=== PATIENT | male | born 1955 | race Caucasian/White ===

== ENCOUNTER 2019-08-14 09:07 | Outpatient (CLI) | payer OTHER, SELFPAY ==
--- NOTE | 2019-08-14 09:30 | USCV_ITS ---
Trung De Jesus Age: 64 Gender: M : 1955 Exam Date: 08/14/2019 09:27 Ordering Phys: Mayuri Magana MD Technologist: Belem Tesfaye Exam Location: [facility] – [place] Indication: visual disturbance Risk Factors: None Previous Vascular Surgery: None Right Brachial BP: / Left Brachial BP: / Right Left Velocity (cm/s) Spectral Plaque Velocity (cm/s) Spectral Plaque Syst/Diast Broadening Syst/Diast Broadening 92.60/ 20.90 Prox CCA 108.80/ 28.00 92.60/ 22.10 Mid CCA 68.40 / 19.80 87.10/ 22.10 Distal CCA 60.60 / 18.70 63.90/ 18.70 Prox ICA 110.40/ 22.30 Homo 91.50/ 27.60 Mid ICA 86.80 / 23.70 Homo 101.40/30.90 Distal ICA 57.30 / 23.10 111.40 ECA 98.10 1.10 ICA/CCA 1.02 Antegrade Vertebral Antegrade 48.20/ 14.00 cm/s 37.60/ 11.10 cm/s Tri Subclavian Tri 167.8 125.1 0 0 FINDINGS Comparison: none available. No significant elevation of systolic or diastolic velocities. Waveforms are normal. Minimal left bifurcation, intimal thickening with no elevation of velocity. CONCLUSIONS Bilateral ICA stenosis less than 50%. Minimal left bifurcation atherosclerosis. Dr. Caroline Nunez DO (Electronically Signed) Final Date: 14 Aug 2019 12:21 S
== END 2019-08-14 09:08 | disposition home or self-care (01) ==
LOC: RAD 09:11
PROVIDERS: PCP Family Medicine; Visit Provider Family Medicine
DX: H54.7 Unspecified visual loss (principal); I65.23 Occlusion and stenosis of bilateral carotid arteries
CPT/HCPCS: 93880

== ENCOUNTER 2020-04-02 13:34 | Outpatient (CLI) | payer OTHER, SELFPAY ==
--- NOTE | 2020-04-02 13:30 | USCV_ITS ---
Trung De Jesus Age: 65 Gender: M : 1955 Exam Date: 04/02/2020 13:56 Ordering Phys: Reuben Avery MD ([email or web address]) Technologist: Millie Yeager Exam Location: [facility] – [place] Indication: CHEST PAIN BP: 147 / 80 HR: 75 Rhythm: Sinus Technical Quality: Adequate MEASUREMENTS (Male / Female) Normal Values 2D ECHO LV Diastolic Diameter PLAX 5.1 cm 4.2 - 5.9 / 3.9 - 5.3 cm LV Systolic Diameter PLAX 3.6 cm LV Chamber Size 4.9 cm IVS Diastolic Thickness 1.4 cm 0.6 - 1.0 / 0.6 - 0.9 cm IVS Systolic Thickness 1.7 cm LVPW Diastolic Thickness 1.4 cm 0.6 - 1.0 / 0.6 - 0.9 cm LVPW Systolic Thickness 1.7 cm RV Chamber Size 3.2 cm LVOT Diameter 2.3 cm LV Ejection Fraction 2D Teich 56.7 % LV Ejection Fraction MOD 2C 50.7 % LV Ejection Fraction 2C AL 48.7 % LA Diameter 3.2 cm LA Width 3.4 cm LA Height 3.1 cm RA Width 3.4 cm RA Height 3.9 cm Aorta at Sinotubular Diameter 3.8 cm M-MODE LV Diastolic Diameter MM 6.4 cm 4.2 - 5.9 / 3.9 - 5.3 cm LV Systolic Diameter MM 3.5 cm LV Ejection Fraction MM Teich 76.4 % IVS Diastolic Thickness MM 0.9 cm 0.6 - 1.0 / 0.6 - 0.9 cm IVS Systolic Thickness MM 2.0 cm LVPW Diastolic Thickness MM 1.4 cm 0.6 - 1.0 / 0.6 - 0.9 cm LVPW Systolic Thickness MM 1.7 cm RV Diastolic Diameter MM 2.4 cm Aortic Annulus Diameter 4.0 cm LA Ao Ratio MM 0.9 MV E Point Septal Separation 0.7 cm DOPPLER AV Peak Velocity 157.0 cm/s LVOT Peak Velocity 86.0 cm/s AV Area Cont Eq vti 2.3 cm squared AV Area Cont Eq pk 2.4 cm squared MV Area PHT 5.0 cm squared Mitral E to A Ratio 0.9 MV E' Velocity 31.0 cm/s Mitral E to MV E' Ratio 9.1 Mitral E to LV E' Lateral Ratio 9.1 Mitral E to LV E' Septal Ratio 9.1 TR Peak Velocity 99.6 cm/s TR Peak Gradient 4.0 mmHg TR Mean Velocity 78.5 cm/s TR Mean Gradient 2.6 mmHg TR Velocity Time Integral 25.2 cm TV Peak E Velocity 59.0 cm/s PV Peak Velocity 84.0 cm/s RV Acceleration Time 0.2 s RV Ejection Time 0.3 s RV AcT/ET 0.5 FINDINGS Left Ventricle Mildly dilated left ventricle with slightly diminished ejection fraction 50 to 55%. Mild hypokinesia of the LV apex. Mild concentric left ventricular hypertrophy. Right Ventricle Normal right ventricular size and systolic function. Right Atrium Normal right atrial size. Left Atrium Normal left atrial size. Mitral Valve Thickened mitral valve. Mild mitral valve regurgitation. Aortic Valve Thickened aortic valve. [id number] aortic valve regurgitation. Tricuspid Valve Trace tricuspid valve regurgitation. Pulmonic Valve Trace pulmonary valve regurgitation. Pericardium Normal pericardium without effusion. Aorta The ascending aorta measured 3.6 cm in diameter CONCLUSIONS Mildly dilated left ventricle with slightly diminished ejection fraction 50 to 55%. Mild hypokinesia of the LV apex. Mild concentric left ventricular hypertrophy. Thickened mitral valve. Mild mitral valve regurgitation. Thickened aortic valve. Yrrf-eq-vvmdmraa aortic valve regurgitation. Trace tricuspid and pulmonic valve regurgitation. There is no pericardial effusion. There are no intracardiac masses. Mildly dilated ascending aorta Compared to the previous study from 02/05/2018, the wall motion abnormality appears to be new Dr Reuben Avery MD [facility] (Electronically Signed) Final Date: 02 April 2020 20:05 S
== END 2020-04-02 13:35 | disposition home or self-care (01) ==
LOC: US 13:36
PROVIDERS: PCP Family Medicine; Visit Provider Internal Medicine Cardiovascular Disease
DX: R07.89 Other chest pain (principal); I08.3 Combined rheumatic disorders of mitral, aortic and tricuspid valves
CPT/HCPCS: 93306

== ENCOUNTER 2020-04-07 09:04 | Outpatient (CLI) | payer OTHER, SELFPAY ==
[2020-04-07 09:33] VITALS: BMI 29.2
--- NOTE | 2020-04-07 09:33 | NMCV_ITS ---
NM tierra perf SPECT r/s* [id number] Trung De Jesus Age: 65 Gender: M : 1955 Exam Date: 04/07/2020 09:33 Ordering Phys: Reuben Avery MD ([email or web address]) Technologist: KATY Argueta Exam Location: [facility] Indications: SOB STRESS TEST [facility] IMAGE PROTOCOL Rest/Stress 1 Lexiscan Day Radiopharmaceutical Dose (mCi) Administration Site Administered by Rest: Tc-99m 10.8 IV KATY Delatorre Sestamibi Stress:Tc-99m 33.0 IV KATY Delatorre Sestamibi Rest: 07-Apr-2020 60 Discovery 630 Stress: 07-Apr-2020 30 Discovery 630 0.4mg Lexiscan. Images obtained in supine and prone position. SPECT RESULTS Technical Quality: Excellent Raw Data Analysis: Normal Image Corrections: No attenuation or motion correction applied Summed Stress Score: 4 Summed Rest Score: 10 Summed Difference Score: 0 PERFUSION FINDINGS Moderate area of decreased tracer uptake was noted in the apical segments. No significant reversibility was noted in this region. FUNCTIONAL RESULTS (calculated via Gated SPECT) Stress Image LV EF (%): 41 Stress EDV (mL):205 TID: 1.08 Stress ESV (mL):121 FUNCTIONAL FINDINGS: Segmental wall motion analysis revealed mild diffuse hypokinesia of the left ventricle with severe hypokinesia of the apex IMPRESSIONS 1. Myocardial perfusion imaging revealing patchy areas of persistent decreased tracer uptake in the apical segments, suggestive of myocardial scarring versus attenuation artifact. 2. Wall motion normalities as mentioned above. 3. Moderately dilated LV cavity with an end-systolic volume of 121 mL 4. LV ejection fraction, estimated to be 41% No significant coronary ischemia, based on the above findings Dr Reuben Avery MD [facility] (Electronically Signed) Final Date: 07 April 2020 13:05 S
--- NOTE | 2020-04-07 09:33 | ECG_ITS ---
[facility] Test Date: 2020-04-07 Pat Name: Trung De Jesus Department: Room: Gender: Male Carrier Operator: : 1955 Requested By: Reuben Avery Order Number: [id number] Adeel MD: Reuben Avery M.D. Interpretive Statements NAME OF STUDY: LEXISCAN SESTAMIBI STRESS TEST INDICATION: Sob, PROCEDURE: At the baseline, the EKG revealed normal sinus rhythm with no significant ST-T changes. Heart rate of 63 bpm. The baseline blood pressure was 139/77 mm Hg with a heart rate of 63 beats/min. Lexiscan was infused over a period of 20 seconds. A total of 0.4 milligrams of Lexiscan was infused. The stress phase was continued for a total of 5 minutes. Heart rate at the end of the stress phase was 75 with a blood pressure 118/80. The EKG at the peak infusion revealed no significant changes. Sestamibi was injected 20 seconds after the Lexiscan infusion. Blood pressure at the end of the recovery phase was 131/81 with a heart rate of 79 per minute. CONCLUSION: 1. No significant EKG changes with the LexiScan infusion 2. No LexiScan induced chest pain or cardiac arrhythmia 3. Normal blood pressure and heart rate response 4. Sestamibi/sestamibi perfusion scan pending; see separate report. Electronically Signed On 04-16-2020 11:39:08 JUNIOR UNDERWRITER by Reuben Avery M.D. [id number]
[2020-04-07] MEDS: regadenoson 0.4 Mg/5 ml Syringe IVP (10:53)
[2020-04-07 11:01] VITALS: BP 131/81; PULSE 75
== END 2020-04-07 09:05 | disposition home or self-care (01) ==
LOC: CDL 09:09
PROVIDERS: PCP Family Medicine; Visit Provider Internal Medicine Cardiovascular Disease
DX: R06.02 Shortness of breath (principal)
CPT/HCPCS: 78452; 93017; A9500; J2785

== ENCOUNTER 2021-04-07 14:37 | Outpatient (CLI) | payer OTHER, SELFPAY ==
--- NOTE | 2021-04-07 15:00 | USCV_ITS ---
Trung De Jesus Age: 66 Gender: M : 1955 Exam Date: 04/07/2021 15:00 Ordering Phys: Reuben Avery MD ([email or web address]) Technologist: SERGIO Exam [place] [facility] [place] Indication: BILATERAL CAROTID ARTERY DISEASE Risk Factors: Previous Vascular Surgery: Right Brachial BP: / Left Brachial BP: / Right Left Velocity (cm/s) Spectral Plaque Velocity (cm/s) Spectral Plaque Syst/Diast Broadening Syst/Diast Broadening 78.20/ 27.80 Prox CCA 103.60/ 27.70 79.40/ 19.80 Mid CCA 84.90 / 25.40 78.30/ 29.80 Distal CCA 77.70 / 21.80 69.10/ 29.50 Prox ICA 89.70 / 29.90 65.30/ 24.90 Mid ICA 99.10 / 27.30 86.20/ 31.10 Distal ICA 55.90 / 21.70 83.10 ECA 110.20 0.82 ICA/CCA 1.17 Antegrade Vertebral Antegrade 54.40/ 17.90 cm/s 83.50/ 23.70 cm/s Tri Subclavian Tri 90.10 107.7 0 FINDINGS Normal Doppler flow velocities and ratios No significant plaques or unstable lesions CONCLUSIONS No significant plaques or unstable lesions in the above- mentioned vessels No significant stenosis based on the Doppler flow velocities Dr Reuben Avery MD [facility] (Electronically Signed) Final Date: 07 April 2021 19:32 S
== END 2021-04-07 14:38 | disposition home or self-care (01) ==
LOC: RAD 14:46
PROVIDERS: PCP Family Medicine; Visit Provider Internal Medicine Cardiovascular Disease
DX: G45.3 Amaurosis fugax (principal); I77.9 Disorder of arteries and arterioles, unspecified
CPT/HCPCS: 93880

== ENCOUNTER 2021-04-18 18:46 | Emergency (ER) | payer OTHER, SELFPAY ==
--- NOTE | 2021-04-18 18:50 | XRR_ITS ---
PROCEDURE INFORMATION: Exam: XR Chest Exam date and time: 04/18/2021 6:50 PM Age: 66 years old Clinical indication: Chest wall pain; Additional info: Cp TECHNIQUE: Imaging protocol: XR of the chest. Views: 1 view. COMPARISON: No relevant prior studies available. FINDINGS: Lungs: Unremarkable. No consolidation. Pleural spaces: Unremarkable. No pleural effusion. No pneumothorax. Heart/Mediastinum: Unremarkable. No cardiomegaly. Bones/joints: Unremarkable. XR/XR chest 1V portable [id number] IMPRESSION: No acute findings.
[2021-04-18 19:11] VITALS: BP 137/89; PULSE 86; RESP 18; TEMP 36.7; O2SAT 98; BMI 28.4
--- NOTE | 2021-04-18 20:50 | ECG_ITS ---
[facility] Test Date: 2021-04-18 Pat Name: Trung De Jesus Department: Room: Gender: Male Emd Teacher: : 1955 Requested By: Anders Plascencia Order Number: [id number] Reading MD: Tawana Henry M.D. Measurements Intervals [place] Rate: 80 P: 73 MN: 172 QRS: 60 QRSD: 116 T: 74 QT: 346 QTc: 399 Interpretive Statements SINUS RHYTHM MODERATE INTRAVENTRICULAR CONDUCTION DELAY [110+ ms QRS DURATION] NONSPECIFIC T-WAVE ABNORMALITY No previous ECG available for comparison Electronically Signed On 04-19-2021 17:13:39 CANDLEMAKING LABORER by Tawana Henry M.D. [email or web address]cura Pharmaceuticalssan mateo medical [email or web address]/[id number]
[2021-04-18 22:47] LABS: Basophils # 0.1 10^3/uL (0.0-0.1); Basophils % 0.9 %; Eosinophils # 0.1 10^3/uL (0.0-0.8); Eosinophils % 1.1 %; Hematocrit 42.6 % (42.0-52.0); Hemoglobin 14.1 g/dL (11.7-16.6); Lymphocytes # 1.7 10^3/uL (0.8-4.8); Lymphocytes % 25.9 %; Mean Corpuscular HGB Conc 33.1 g/dL (30.0-36.0); Mean Corpuscular Hemoglobin 31.1 pg (28.0-34.0); Mean Corpuscular Volume 93.8 fl (80-94); Mean Platelet Volume 8.6 fL (7.4-10.4); Monocytes # 0.6 10^3/uL (0.2-0.9); Monocytes % 9.2 %; Neutrophils # 4.15 10^3/uL (1.8-7.7); Neutrophils % 62.4 %; Nucleated Red Blood Cells % 0 %; Platelet Count 244 10^3/cmm (130-400); Red Blood Count 4.54 10^6/uL (4.1-5.3); Red Cell Distribution Width 12.5 % (12.1-15.1); White Blood Count 6.6 10^3/uL (4.0-10.0)
[2021-04-18 22:57] VITALS: BP 151/77; PULSE 77; RESP 18; O2SAT 98
--- NOTE | 2021-04-18 22:59 | PC.NURSE ---
received with c/o elevated blood pressure and increased heart rate starting last night states he could hear his heart when he was lying in bed. states today chest discomfort on the left. states recent COVID. reprots compliance with medications. speech clear sentences complete.
[2021-04-18] MEDS: labetalol 5 mg/mL SDV 20mL 10 MG IVP (23:03)
[2021-04-18] MEDS: aspirin 81 mg Chew Tablet 324 MG PO (23:03)
--- NOTE | 2021-04-18 23:05 | W.ED.CHESTPA ---
HPI - Chest Pain General: Chief Complaint: Chest Pain Stated Complaint: High Blood Pressure\Chest Pain Time Seen by Provider: 04/18/21 22:53 Source: patient Mode of arrival: ambulatory Limitations: no limitations History of Present Illness: 66-year-old male states he has been having some difficulty with his blood pressure has been having his carvedilol adjusted he states he was on 1 tab twice daily but now takes for 1 in the morning and half at night. He states that this evening his blood pressures get high in the 160s 170s he is having some fluttering feeling and some pressure type pain in his chest. States this happened about 5 to 6 hours ago since resolved he has no pain currently denies headache denies any shortness of breath denies any worsening improving factors. Associated symptoms: Deny abdominal pain, dyspnea, fever(s), nausea or vomiting Review of Systems Const: Denies: fever(s), chills, body aches or change in appetite Eyes: Denies: blurry vision or eye discomfort ENMT: Denies: throat pain or dental pain Card: Reports: chest pain Resp: Denies: dyspnea GI: Denies: abdominal pain, nausea, vomiting or diarrhea : Denies: dysuria Musc: Denies: neck pain or back pain Skin/Breast: Denies: rash Neuro: Denies: headache(s) Psych: Denies: depression Lionel/Lymph: Denies: easy bruising All/Imm: Denies: urticaria PFSH ED PFSH: Medical History Aortic regurgitation Chest pain The EKG from today March 08, 2020 revealed sinus rhythm with 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 No acute ST-T changes. Former smoker History of BPH History of hypertension Hx of hypercholesterolemia Surgical History History of total left knee replacement Hx of colonoscopy Family History Brother Diabetes CAD (coronary artery disease) Hypertension Father Cancer Hypertension Mother Dementia Denies family history of Clotting disorder Chronic kidney disease (CKD) Suicide Anesthesia complication Bleeding disorder Lung disease Stroke Social History Alcohol intake: never Physical Exam Const: COMMON NORMALS: no acute distress, patient oriented x3 and healthy appearing HENMT: COMMON NORMALS: normocephalic and atraumatic HEAD & SCALP: normocephalic and atraumatic Eye: COMMON NORMALS: Equal, round and reactive pupils present and EOMs intact bilaterally PUPIL: Yes Equal, round and reactive pupils present Neck/C-Spine: COMMON NORMALS: full ROM and supple Chest: COMMONS NORMALS: normal inspection of the chest and normal palpation of entire chest wall Resp: COMMON NORMALS: normal respiratory effort, No retractions, No use of accessory muscles and clear to auscultation bilaterally AUSCULTATION: clear to auscultation bilaterally Cardio: COMMON NORMALS: regular rate, regular rhythm and No murmurs present (Cardio) RATE: regular rate RHYTHM: regular rhythm GI: COMMON NORMALS: Normal to inspection, nondistended, normoactive bowel sounds present, Soft to palpation, non-tender and no masses PALPATION: Yes Soft to palpation Extremity: COMMON NORMALS: normal to inspection and full ROM Neuro: COMMON NORMALS: patient oriented x3, moves all extremities and no focal motor deficits Psych: COMMON NORMALS: mental status grossly normal, Normal thought process present and cooperative THOUGHT PROCESS: Normal thought process present Skin: COMMON NORMALS: no rashes or lesions noted and no wounds GENERAL SKIN EXAM: no rashes or lesions noted Course Vital Signs: Vital signs: Vital Signs Temperature 98.0 F 04/18/21 19:11 Pulse Rate 60 04/19/21 00:09 Respiratory Rate 18 04/19/21 00:09 Blood Pressure 127/77 04/19/21 00:09 Pulse Oximetry 97 04/19/21 00:09 MDM - Chest Pain Medical Decision Making Patient presents here with chest pains very atypical in nature likely from his high blood pressures initial repeat troponins are negative EKGs are normal as well blood pressure improved here with labetalol we will increase his dose of carvedilol back to 1 pill twice daily he feels improved he is to follow-up with his production service manager return if worsening he understands agrees to plan Medical Records . Lab Data : 04/18/21 22:40 04/18/21 22:40 Radiology Impressions Chest X-Ray 04/18/21 18:50 IMPRESSION: No acute findings. Laboratory Results WBC 6.6 10^3/uL (4.0-10.0) 04/18/21 22:40 RBC 4.54 10^6/uL (4.1-5.3) 04/18/21 22:40 Hgb 14.1 g/dL (11.7-16.6) 04/18/21 22:40 Hct 42.6 % (42.0-52.0) 04/18/21 22:40 MCV 93.8 fl (80-94) 04/18/21 22:40 MCH 31.1 pg (28.0-34.0) 04/18/21 22:40 MCHC 33.1 g/dL (30.0-36.0) 04/18/21:40 RDW 12.5 % (12.1-15.1) 04/18/21:40 Plt Count 244 10^3/cmm (130-400) 04/18/21:40 MPV 8.6 fL (7.4-10.4) 04/18/21 22:40 Neut % (Auto) 62.4 % 04/18/21:40 Lymph % (Auto) 25.9 % 04/18/21:40 [place]ier % (Auto) 9.2 % 04/18/21 22:40 Eos % (Auto) 1.1 % 04/18/21:40 Baso % (Auto) 0.9 % 04/18/21:40 Neut # (Auto) 4.15 10^3/uL (1.8-7.7) 04/18/21:40 Lymph # (Auto) 1.7 10^3/uL (0.8-4.8) 04/18/21 22:40 [place] # (Auto) 0.6 10^3/uL (0.2-0.9) 04/18/21:40 Eos # (Auto) 0.1 10^3/uL (0.0-0.8) 04/18/21:40 Baso # (Auto) 0.1 10^3/uL (0.0-0.1) 04/18/21:40 Nucleated RBC % (auto) 0 % 04/18/21:40 Nucleated RBCs # 0.0 /100WBC 04/18/21:40 Sodium 139 mmol/L (136-145) 04/18/21 22:40 Potassium 4.1 mmol/L (3.5-5.1) 04/18/21 22:40 Chloride 103 mmol/L (98-107) 04/18/21 22:40 Carbon Dioxide 27 mmol/L (22-29) 04/18/21 22:40 Anion Gap 13.1 (5-19) 04/18/21 22:40 BUN 11 mg/dL (8-23) 04/18/21 22:40 Creatinine 0.9 mg/dL (0.7-1.2) 04/18/21 22:40 GFR Calculation 85.0 mL/min (90-130) L 04/18/21 22:40 Glucose 88 mg/dL (65-115) 04/18/21 22:40 Calculated Osmolality 287 mOsm/kg (285-295) 04/18/21 22:40 Calcium 8.9 mg/dL (8.5-10.5) 04/18/21 22:40 Total Bilirubin 0.5 mg/dL (0.15-1.2) 04/18/21 22:40 AST 27 U/L (0-40) 04/18/21 22:40 ALT 12 U/L (0-41) 04/18/21 22:40 Alkaline Phosphatase 86 IU/L (40-130) 04/18/21 22:40 Troponin T Baseline 11 ng/L (0-15) 04/18/21 22:40 Troponin T 120 Minute 10.90 ng/L (0-15) 04/18/21 00:40 Delta Troponin T -0.10 ABS# (0-10) L 04/18/21 00:40 Total Protein 6.9 g/dL (6.6-8.7) 04/18/21 22:40 Albumin 4.3 g/dL (3.5-5.2) 04/18/21 22:40 Globulin 2.6 g/dL (1.3-4.6) 04/18/21 22:40 Imaging Data CXR: I personally reviewed and interpreted this imaging study as follows: My impression: no acute abnormality EKG Data EKG 1: I personally reviewed and interpreted this EKG as follows: EKG interpretation date: 04/18/21 EKG interpretation time: 19:09 Interpretation: nsr hr [address] or t wave abnormalities qrs 116 qtc 381 EKG 2: I personally reviewed and interpreted this EKG as follows: EKG interpretation date: 04/19/21 EKG interpretation time: 00:32 Interpretation: nsr hr [address] or t wave abnormalities qrs 115 qtc 398 Discharge Plan Discharge Patient Disposition: Home Clinical Impression: Hypertension Chest pain Qualifiers: Chest pain type: unspecified Qualified Code(s): R07.9 - Chest pain, unspecified Condition: Stable Prescriptions: Changed carvedilol 6.25 mg tablet 6.25 mg PO BID Qty: 45 0RF Rx Instructions: must administer with a meal/food No Action aspirin [Adult Aspirin Regimen] 81 mg tablet,delayed release (DR/EC) 81 mg PO DAILY 0RF atorvastatin 40 mg tablet 40 mg PO DAILY 0RF ibuprofen 200 mg capsule 200 mg PO Q6H PRN0RF omeprazole 20 mg capsule,delayed release(DR/EC) 20 mg PO DAILY 0RF tamsulosin 0.4 mg capsule 0.4 mg PO DAILY 0RF triamcinolone acetonide 0.1 % cream 1 applic topical DAILY 0RF lisinopril 10 mg tablet 10 mg PO DAILY Qty: 30 5RF Discharge Orders: Discharge ED (Routine); Ordered 04/19/21 Ordered By: Anders Plascencia Referrals: Mayuri Magana MD [Primary Care Provider] - Reuben Avery MD [Physician] - 1-3 days Discharge Diet: Advance as tolerated Discharge Activity: Resume usual activity Coding Level of Care Code ED Optometrist President/Practice Owner for Chg Fwd Exam Comprehensive
[2021-04-18 23:14] LABS: Troponin(5th) Baseline 11 ng/L (0-15)
[2021-04-18 23:15] LABS: Alanine Aminotransferase 12 U/L (0-41); Albumin Level 4.3 g/dL (3.5-5.2); Alkaline Phosphatase 86 IU/L (40-130); Anion Gap 13.1 (5-19); Aspartate Amino Transferase 27 U/L (0-40); Blood Urea Nitrogen 11 mg/dL (8-23); Calcium 8.9 mg/dL (8.5-10.5); Carbon Dioxide 27 mmol/L (22-29); Chloride 103 mmol/L (98-107); Globulin 2.6 g/dL (1.3-4.6); Glucose 88 mg/dL (65-115); Osmolality Calculated 287 mOsm/kg (285-295); Potassium 4.1 mmol/L (3.5-5.1); Sodium 139 mmol/L (136-145); Total Bilirubin 0.5 mg/dL (0.15-1.2); Total Protein 6.9 g/dL (6.6-8.7)
[2021-04-19 00:09] VITALS: BP 127/77; PULSE 60; RESP 18; O2SAT 97
--- NOTE | 2021-04-19 00:50 | ECG_ITS ---
[facility] Test Date: 2021-04-19 Pat Name: Trung De Jesus Department: Room: Gender: Male Financial Services Education Consultant: : 1955 Requested By: Anders Plascencia Order Number: [id number] Adeel MD: Tawana Henry M.D. Measurements Intervals [place] Rate: 61 P: 86 NE: 184 QRS: 30 QRSD: 115 T: 77 QT: 396 QTc: 399 Interpretive Statements SINUS RHYTHM MODERATE INTRAVENTRICULAR CONDUCTION DELAY [110+ ms QRS DURATION] NONSPECIFIC T-WAVE ABNORMALITY Compared to ECG 04/18/2021 19:09:12 No significant changes Electronically Signed On 04-19-2021 17:13:13 LAWNMOWER MECHANIC by Tawana Henry M.D. [id number]
[2021-04-19 02:01] VITALS: BP 135/78; PULSE 65; RESP 18; O2SAT 98
== END 2021-04-19 02:02 | disposition home or self-care (01) ==
PROVIDERS: Emergency Provider Emergency Medicine; PCP Family Medicine
DX: R07.9 Chest pain, unspecified (principal); I10 Essential (primary) hypertension; Z79.82 Long term (current) use of aspirin
CPT/HCPCS: 71045; 80053; 84484; 85025; 93005; 96374; 99284; J3490

== ENCOUNTER 2021-11-05 17:28 | Emergency (ER) | payer OTHER, SELFPAY ==
[2021-11-05 18:01] VITALS: BP 124/75; PULSE 63; RESP 16; TEMP 36.4; O2SAT 99; BMI 28.5
--- NOTE | 2021-11-05 19:07 | W.ED.ABDPA2 ---
HPI - Abdominal Pain General: Chief Complaint: Abdominal Pain Stated Complaint: n/v/d, Right side pain Time Seen by Provider: 11/05/21 18:42 History of Present Illness: Patient is a 66-year-old male comes to the ED with nausea vomiting diarrhea. Symptoms started this morning when he woke up. He states he has had similar episodes like about 1 day a week for the past 2 months. He reports having some very mild episodic abdominal cramping that is located in right upper abdomen. He says that pain comes and goes during these episodes. He has had multiple episodes of diarrhea today along with nausea and vomiting. He states that he ate some [place] food last night and then ate a big biscuits and gravy breakfast in the morning. Tonight his nausea, vomiting diarrhea got worse and has had multiple episodes within the past couple hours. Here in the ED he says he is not having any abdominal pain or nausea currently. He feels like he might have another diarrhea BM here in the ED. Denies any fevers, chills, blood in the stool, dysuria, hematuria. Denies any past abdominal surgery history. Associated Symptoms: Reports GI cramping, diarrhea, nausea and vomiting; Denies chills, constipation, dysuria, fever(s), hematochezia and hematuria Review of Systems Const: Denies: fever(s), chills or fatigue Eyes: Denies: change in vision or eye discomfort ENMT: Denies: throat pain, odynophagia, nasal discharge or nasal congestion Card: Denies: chest pain, palpitations, edema, swelling of feet/ankles, dyspnea on exertion or orthopnea Resp: Denies: dyspnea, productive cough or non-productive cough GI: Reports: nausea, vomiting, diarrhea and GI cramping; Denies: abdominal pain, constipation or hematochezia : Denies: flank pain, difficulty urinating, dysuria or hematuria Musc: Denies: neck pain, back pain or extremity swelling Skin/Breast: Denies: rash or new lesions Neuro: Denies: headache(s), numbness in extremities or weakness in extremities PFS ED PFSH: Medical History Aortic regurgitation Chest pain Former smoker History of BPH History of hypertension Hx of hypercholesterolemia Surgical History History of total left knee replacement Hx of colonoscopy Family History Brother Diabetes CAD (coronary artery disease) Hypertension Father Cancer Hypertension Mother Dementia Denies family history of Clotting disorder Chronic kidney disease (CKD) Suicide Anesthesia complication Bleeding disorder Lung disease Stroke Social History Smoking and tobacco status: former smoker Alcohol intake: never Physical Exam Const: COMMON NORMALS: no acute distress, patient oriented x3 and alert GENERAL APPEARANCE: cooperative HENMT: COMMON NORMALS: normocephalic HEAD & SCALP: normocephalic MOUTH: Normal oral and palatal mucosa present THROAT: posterior oropharynx normal and uvula midline Neck/C-Spine: COMMON NORMALS: supple GENERAL: Yes normal visual inspection Resp: COMMON NORMALS: normal respiratory effort, No retractions, No use of accessory muscles and clear to auscultation bilaterally AUSCULTATION: clear to auscultation bilaterally Cardio: COMMON NORMALS: regular rate, regular rhythm, S1 normal heart sound present, S2 normal heart sound present, No gallops present (Cardio), No clicks present (Cardio), No murmurs present (Cardio) and Peripheral pulses 2+ throughout RATE: regular rate RHYTHM: regular rhythm HEART SOUNDS: S1 normal heart sound present and S2 normal heart sound present PERIPHERAL PULSES: Peripheral pulses 2+ throughout GI: COMMON NORMALS: Normal to inspection, nondistended, normoactive bowel sounds present, Soft to palpation, non-tender and no masses PALPATION: Yes Soft to palpation OTHER: Patient has no abdominal tenderness upon palpation throughout all 4 quadrants. : COMMON NORMALS: Yes no CVA tenderness BLADDER/KIDNEY EXAM: Yes no CVA tenderness Back/Pelvis: COMMON NORMALS: no CVA tenderness Extremity: COMMON NORMALS: normal to inspection Neuro: COMMON NORMALS: patient oriented x3 SENSORIUM/ORIENTATION: Yes alert GAIT: Yes Normal gait present Skin: GENERAL SKIN EXAM: dry skin Course Vital Signs: Vital signs: Vital Signs Temperature 97.6 F 11/05/21 18:01 Pulse Rate 63 11/05/21 18:01 Respiratory Rate 16 11/05/21 18:01 Blood Pressure 124/75 11/05/21 18:01 Pulse Oximetry 99 11/05/21 18:01 Oxygen Delivery Me thod 11/05/21 18:01 MDM - Abdominal Pain Medical Decision Making Patient is a 66-year-old male comes to the ED with nausea vomiting diarrhea. Symptoms started this morning when he woke up. He states he has had similar episodes like about 1 day a week for the past 2 months. He reports having some very mild episodic abdominal cramping that is located in right upper abdomen. He says that pain comes and goes during these episodes. He has had multiple episodes of diarrhea today along with nausea and vomiting. Vitals stable. Exam of patient is benign and he appears in no acute distress or pain. No abdominal tenderness. Rest of exam is benign white blood cell count 11.4 the rest of CBC and CMP were unremarkable. CT of abdomen pelvis showed no acute findings. Given patient's symptoms for the past couple months he likely is suffering from IBS. He was stable for discharge home and sent home with a prescription for some Bentyl and Zofran. Told to follow-up with his PCP in the next week for reevaluation. Return to ED precautions given. Patient understood and agreed with plan. Lab Data I reviewed the patient's lab results. : 11/05/21 19:15 11/05/21 19:15 Labs/Radiology: Radiology Impressions Abdomen/Pelvis CT 11/05/21 19:35 IMPRESSION: No focal acute findings. Bowel fluid can be correlated for viral or other osmotic or secretory type diarrhea. Additional details as above. COMMENTS: Consistent with the [employer]'s Incidental Findings Committee white paper (J Am Ryan Radiol 2018): Any incidental renal lesion less than 1 cm or classified as too small to characterize, or any incidental cystic renal lesion characterized as simple-appearing, is likely benign. No follow-up imaging is recommended for these lesions per consensus recommendations based on imaging criteria. Laboratory Results WBC 11.4 10^3/uL (4.0-10.0) H 11/05/21 19:15 RBC 4.32 10^6/uL (4.1-5.3) 11/05/21 19:15 Hgb 13.5 g/dL (11.7-16.6) 11/05/21 19:15 Hct 41.6 % (42.0-52.0) L 11/05/21 19:15 MCV 96.3 fl (80-94) H 11/05/21 19:15 MCH 31.3 pg (28.0-34.0) 11/05/21 19:15 MCHC 32.5 g/dL (30.0-36.0) 11/05/21 19:15 RDW 13.1 % (12.1-15.1) 11/05/21 19:15 Plt Count 207 10^3/cmm (130-400) 11/05/21 19:15 MPV 9.6 fL (7.4-10.4) 11/05/21 19:15 Neut % (Auto) 86.6 % 11/05/21 19:15 Lymph % (Auto) 6.2 % 11/05/21 19:15 [place] % (Auto) 5.7 % 11/05/21 19:15 Eos % (Auto) 0.8 % 11/05/21 19:15 Baso % (Auto) 0.4 % 11/05/21 19:15 Neut # (Auto) 9.86 10^3/uL (1.8-7.7) H 11/05/21 19:15 Lymph # (Auto) 0.7 10^3/uL (0.8-4.8) L 11/05/21 19:15 [place] # (Auto) 0.7 10^3/uL (0.2-0.9) 11/05/21 19:15 Eos # (Auto) 0.1 10^3/uL (0.0-0.8) 11/05/21 19:15 Baso # (Auto) 0.1 10^3/uL (0.0-0.1) 11/05/21 19:15 Nucleated RBC % (auto) 0 % 11/05/21 19:15 Nucleated RBCs # 0.0 /100WBC 11/05/21 19:15 Sodium 141 mmol/L (136-145) 11/05/21 19:15 Potassium 4.0 mmol/L (3.5-5.1) 11/05/21 19:15 Chloride 105 mmol/L (98-107) 11/05/21 19:15 Carbon Dioxide 23 mmol/L (22-29) 11/05/21 19:15 Anion Gap 17.0 (5-19) 11/05/21 19:15 BUN 16 mg/dL (8-23) 11/05/21 19:15 Creatinine 0.9 mg/dL (0.7-1.2) 11/05/21 19:15 GFR Calculation 85.0 mL/min (90-130) L 11/05/21 19:15 Glucose 92 mg/dL (65-115) 11/05/21 19:15 Calculated Osmolality 293 mOsm/kg (285-295) 11/05/21 19:15 Calcium 9.6 mg/dL (8.5-10.5) 11/05/21 19:15 Total Bilirubin 0.6 mg/dL (0.15-1.2) 11/05/21 19:15 AST 27 U/L (0-40) 11/05/21 19:15 ALT 11 U/L (0-41) 11/05/21 19:15 Alkaline Phosphatase 84 U/L (40-130) 11/05/21 19:15 Total Protein 7.2 g/dL (6.6-8.7) 11/05/21 19:15 Albumin 4.4 g/dL (3.5-5.2) 11/05/21 19:15 Globulin 2.8 g/dL (1.3-4.6) 11/05/21 19:15 Lipase 19 U/L (13-60) 11/05/21 19:15 Discharge Plan Discharge Patient Disposition: Home Clinical Impression: IBS (irritable bowel syndrome) Qualifiers: Irritable bowel syndrome type: with diarrhea Qualified Code(s): K58.0 - Irritable bowel syndrome with diarrhea Condition: Stable Prescriptions: New dicyclomine 20 mg tablet 20 mg PO TID PRN (Reason: Abdominal cramping and diarrhea) Qty: 30 0RF ondansetron 4 mg tablet,disintegrating 4 mg PO Q8H PRN (Reason: nausea and vomiting) Qty: 20 0RF No Action aspirin [Adult Aspirin Regimen] 81 mg tablet,delayed release (DR/EC) 81 mg PO DAILY atorvastatin 40 mg tablet 40 mg PO DAILY ibuprofen 200 mg capsule 200 mg PO Q6H PRN omeprazole 20 mg capsule,delayed release(DR/EC) 20 mg PO DAILY tamsulosin 0.4 mg capsule 0.4 mg PO DAILY triamcinolone acetonide 0.1 % cream 1 applic topical DAILY carvedilol 12.5 mg tablet 12.5 mg PO BID Qty: 180 3RF Rx Instructions: must administer with a meal/food isosorbide mononitrate 30 mg tablet extended release 24 hr 15 mg PO BID Qty: 90 3RF lisinopril 10 mg tablet See Rx Instructions .ROUTE .COMPLEX Qty: 90 3RF Dose Instruction: Take 1 tablet by mouth once daily Rx Instructions: Take 1 tablet by mouth once daily Discharge Orders: Discharge ED (Routine); Ordered 11/05/21 Ordered By: Kota Aguilar Referrals: Mayuri Magana MD [Primary Care Provider] - Discharge Diet: Advance as tolerated Discharge Activity: Resume usual activity Patient Instructions: Irritable Bowel Syndrome (ED) Activity Restrictions/Additional Instructions: Follow-up with medical provider as directed in the next 5 to 7 days reevaluation. Take medications as prescribed. Return to the ER or your medical provider if condition worsens. Please read and understand discharge instructions. Thank you for choosing [facility] for your healthcare needs today. Please realize this is an emergency room and that we are providing you with a medical screening exam and this may not be complete and all inclusive of all the testing and or work up that you may need to determine your ailment or severity of your illness. It is very important that you follow up as instructed or that you return to the Emergency Department should you have concerns or if your condition changes or worsens in any way. Coding Level of Care Code ED Drum Carrier for Eduardo Cooper Exam Comprehensive
[2021-11-05] MEDS: sodium chloride 0.9% 1,000 ML 999 ML IV (19:13)
[2021-11-05] MEDS: ondansetron 2 mg/ML SDV 2 mL 4 MG IVP (19:14)
[2021-11-05 19:24] LABS: Basophils # 0.1 10^3/uL (0.0-0.1); Basophils % 0.4 %; Eosinophils # 0.1 10^3/uL (0.0-0.8); Eosinophils % 0.8 %; Hematocrit 41.6 % (42.0-52.0); Hemoglobin 13.5 g/dL (11.7-16.6); Lymphocytes # 0.7 10^3/uL (0.8-4.8); Lymphocytes % 6.2 %; Mean Corpuscular HGB Conc 32.5 g/dL (30.0-36.0); Mean Corpuscular Hemoglobin 31.3 pg (28.0-34.0); Mean Corpuscular Volume 96.3 fl (80-94); Mean Platelet Volume 9.6 fL (7.4-10.4); Monocytes # 0.7 10^3/uL (0.2-0.9); Monocytes % 5.7 %; Neutrophils # 9.86 10^3/uL (1.8-7.7); Neutrophils % 86.6 %; Nucleated Red Blood Cells % 0 %; Platelet Count 207 10^3/cmm (130-400); Red Blood Count 4.32 10^6/uL (4.1-5.3); Red Cell Distribution Width 13.1 % (12.1-15.1); White Blood Count 11.4 10^3/uL (4.0-10.0)
--- NOTE | 2021-11-05 19:35 | CTR_ITS ---
PROCEDURE INFORMATION: Exam: CT Abdomen And Pelvis With Contrast Exam date and time: 11/05/2021 8:23 PM Age: 66 years old Clinical indication: Abdominal pain; Localized; Right upper quadrant (ruq); Patient HX: Ruq pain intermittent since August, with nausea, vomiting and diarrhea; Additional info: Nausea, vomiting diarrhea. Abdominal abdominal pain ruq TECHNIQUE: Imaging protocol: Computed tomography of the abdomen and pelvis with contrast. Radiation optimization: All CT scans at this facility use at least one of these dose optimization techniques: automated exposure control; mA and/or kV adjustment per patient size (includes targeted exams where dose is matched to clinical indication); or iterative reconstruction. Contrast material: OMNIPAQUE 350; Contrast volume: 95 ml; Contrast route: INTRAVENOUS (IV); COMPARISON: CR XR chest 1V portable [id number] 04/18/2021 7:15 PM RADIATION DOSE METRICS: Total DLP (mGy-cm): 691.35 FINDINGS: Liver: Normal. No mass. Gallbladder and bile ducts: Normal. No calcified stones. No ductal dilation. Pancreas: Normal. No ductal dilation. Spleen: Normal. No splenomegaly. Adrenal glands: Normal. No mass. Kidneys and ureters: Bilateral renal cysts are likely benign. No hydronephrosis. Stomach and bowel: Fluid noted throughout nondistended colon and in the nondistended distal small bowel. Appendix: No evidence of appendicitis. Intraperitoneal space: Unremarkable. No free air. No significant fluid collection. Vasculature: Unremarkable. No abdominal aortic aneurysm. Lymph nodes: Unremarkable. No enlarged lymph nodes. Urinary bladder: Unremarkable as visualized. Reproductive: Unremarkable as visualized. Bones/joints: Spondylolysis and grade 1 spondylolisthesis L4. Soft tissues: Unremarkable. CT/CT abdomen pelvis w con* [id number] IMPRESSION: No focal acute findings. Bowel fluid can be correlated for viral or other osmotic or secretory type diarrhea. Additional details as above. COMMENTS: Consistent with the [employer]'s Incidental Findings Committee white paper (J Am Ryan Radiol 2018): Any incidental renal lesion less than 1 cm or classified as too small to characterize, or any incidental cystic renal lesion characterized as simple-appearing, is likely benign. No follow-up imaging is recommended for these lesions per consensus recommendations based on imaging criteria.
[2021-11-05 19:50] LABS: Alanine Aminotransferase 11 U/L (0-41); Albumin Level 4.4 g/dL (3.5-5.2); Alkaline Phosphatase 84 U/L (40-130); Aspartate Amino Transferase 27 U/L (0-40); Blood Urea Nitrogen 16 mg/dL (8-23); Calcium 9.6 mg/dL (8.5-10.5); Carbon Dioxide 23 mmol/L (22-29); Chloride 105 mmol/L (98-107); Globulin 2.8 g/dL (1.3-4.6); Glucose 92 mg/dL (65-115); Lipase 19 U/L (13-60); Osmolality Calculated 293 mOsm/kg (285-295); Sodium 141 mmol/L (136-145); Total Bilirubin 0.6 mg/dL (0.15-1.2); Total Protein 7.2 g/dL (6.6-8.7)
[2021-11-05] MEDS: iohexol 350 mg/mL 100 mL Btl IV (20:27)
== END 2021-11-05 21:31 | disposition home or self-care (01) ==
PROVIDERS: Emergency Provider Physician Assistant; PCP Family Medicine
DX: K58.0 Irritable bowel syndrome with diarrhea (principal); Z79.82 Long term (current) use of aspirin; I10 Essential (primary) hypertension; Z87.891 Personal history of nicotine dependence
CPT/HCPCS: 74177; 80053; 83690; 85025; 96374; 99285; J2405; J7030; Q9967

== ENCOUNTER 2022-01-20 08:13 | Outpatient (CLI) | payer OTHER, SELFPAY ==
--- NOTE | 2022-01-20 08:23 | US_ITS ---
WS: [id number] Exam: US abdomen limited [id number] Date/Time of Exam: 01/20/2022 8:35 AM Reason For Exam: RUQ PAIN The liver and gallbladder are unremarkable. The IVC shows phasic flow. The common bile duct is not di lated and measures 2.3 mm at greatest diameter. No intrahepatic ductal dilatation. The portal vein sh ows hepatopedal flow. The right kidney appears normal. The right kidney measures 9.5 x 5.8 x 4.8 cm. The pancreas is unremarkable as visualized. No mass or significant free fluid noted in the right abdo men. US/US abdomen limited [id number] IMPRESSION: 1. Unremarkable right abdominal sonogram.
== END 2022-01-20 08:14 | disposition home or self-care (01) ==
LOC: RAD 08:13
PROVIDERS: PCP Family Medicine; Visit Provider Family Medicine
DX: R10.11 Right upper quadrant pain (principal)
CPT/HCPCS: 76705

== ENCOUNTER → 2023-02-19 14:20 | Outpatient (BNVA) | payer OTHER, SELFPAY | PROVIDERS: PCP Family Medicine; Visit Provider Internal Medicine Cardiovascular Disease | DX: R07.9 Chest pain, unspecified (principal) | CPT/HCPCS: 93005 ==

== ENCOUNTER 2023-03-05 14:45 | Outpatient (CLI) | payer OTHER, SELFPAY ==
--- NOTE | 2023-03-05 15:15 | USCV_ITS ---
Trung De Jesus Age: 67 Gender: M : 1955 Exam Date: 03/05/2023 15:21 Ordering Phys: Reuben Avery MD ([email or web address]) Technologist: Belem Tesfaye [place] [facility] [place]: CP, CM, AR BP: 130 / 78 HR: 60 Rhythm: Sinus Technical Quality: Good MEASUREMENTS (Male / Female) Normal Values 2D ECHO LV Diastolic Diameter PLAX 5.8 cm 4.2 - 5.9 / 3.9 - 5.3 cm LV Systolic Diameter PLAX 4.3 cm IVS Diastolic Thickness 1.2 cm 0.6 - 1.0 / 0.6 - 0.9 cm IVS Systolic Thickness 1.3 cm LVPW Diastolic Thickness 1.2 cm 0.6 - 1.0 / 0.6 - 0.9 cm LVPW Systolic Thickness 1.6 cm LVOT Diameter 2.5 cm LV Ejection Fraction 2D Teich 49.8 % LV Ejection Fraction MOD 2C 57.2 % LV Ejection Fraction 2C AL 56.7 % LA Diameter 3.8 cm LA Width 3.3 cm LA Height 4.4 cm RA Width 4.7 cm RA Height 4.8 cm Aorta at Sinotubular Diameter 3.4 cm IVC Diameter 1.6 cm M-MODE Aortic Annulus Diameter 3.6 cm LA Ao Ratio MM 1.2 MV E Point Septal Separation 1.2 cm DOPPLER AV Peak Velocity 207.0 cm/s LVOT Peak Velocity 84.0 cm/s AV Area Cont Eq vti 2.2 cm squared AV Area Cont Eq pk 2.0 cm squared MV Peak Velocity 71.0 cm/s MV Area PHT 3.9 cm squared Mitral E to A Ratio 1.1 MV E' Velocity 35.5 cm/s Mitral E to MV E' Ratio 10.4 Mitral E to LV E' Lateral Ratio 9.2 Mitral E to LV E' Septal Ratio 12.2 TR Peak Velocity 117.0 cm/s TR Peak Gradient 5.5 mmHg Right Atrial Pressure 5.0 mmHg Pulmonary Artery Systolic Pressu 10.5 mmHg PV Peak Velocity 78.0 cm/s RV Acceleration Time 0.2 s RV Ejection Time 0.4 s RV AcT/ET 0.4 FINDINGS Left Ventricle Diffuse hypokinesia of the inflow inferoposterior wall segment. LV ejection fraction of 50 to 55%, (visual). Mildly dilated LV cavity Right Ventricle The right ventricle is normal in size and function. Right Atrium The right atrium is normal in size. Left Atrium The left atrium is normal in size. Mitral Valve Trace mitral valve regurgitation. Aortic Valve Thickened aortic valve. Mild aortic valve regurgitation. Tricuspid Valve No gross abnormalities noted no gross abnormalities noted Pulmonic Valve No gross abnormalities noted Pericardium Normal pericardium without effusion. Aorta Normal ascending aorta dimension. IVC Normal inferior vena cava. CONCLUSIONS Diffuse hypokinesia of the inflow inferoposterior wall segment. LV ejection fraction of 50 to 55%, (visual). Mildly dilated LV cavity. Trace mitral valve regurgitation. Thickened aortic valve. Mild aortic valve regurgitation. There is no pericardial effusion. There are no intracardiac masses. Compared to the study from 04/02/2020, there may not be a significant change Dr Reuben Avery MD FAC (Electronically Signed) Final Date: 10 March 2023 13:36 S
== END 2023-03-05 14:46 | disposition home or self-care (01) ==
LOC: RAD 14:45
PROVIDERS: PCP Family Medicine; Visit Provider Internal Medicine Cardiovascular Disease
DX: I08.0 Rheumatic disorders of both mitral and aortic valves (principal); R06.09 Other forms of dyspnea
CPT/HCPCS: 93306

== ENCOUNTER 2023-03-06 06:57 | Outpatient (CLI) | payer OTHER, SELFPAY ==
[2023-03-06 07:11] VITALS: BMI 31.4
--- NOTE | 2023-03-06 07:12 | NMCV_ITS ---
NM tierra perf SPECT r/s* [id number] Trung De Jesus Age: 67 Gender: M : 1955 Exam Date: 03/06/2023 07:47 Ordering Phys: Reuben Avery MD ([email or web address]) Technologist: KATY Argueta Exam Location: [facility] Indications: CORONARY ANGIOPLASTY STATUS STRESS TEST Please see separate stress test report [facility] for full findings IMAGE PROTOCOL Rest/Stress 1 Lexiscan Day Radiopharmaceutical Dose (mCi) Administration Site Administered by Rest: Tc-99m 10.7 IV KATY Delatorre Sestamibi Stress:Tc-99m 32.6 IV KATY Delatorre Sestamibi Rest: 06-Mar-2023 60 Discovery 630 Stress: 06-Mar-2023 30 Discovery 630 0.4mg Lexiscan. Images obtained in supine and prone position. SPECT RESULTS Technical Quality: Excellent Raw Data Analysis: Normal Image Corrections: No attenuation or motion correction applied Summed Stress Score: 6 Summed Rest Score: 5 Summed Difference Score: 4 PERFUSION FINDINGS Minimal to moderately decreased aseptic was noted in the apical segments involving the apical inferior, apical lateral, apical septal and apex some reversibility was noted in all the segments except the apex FUNCTIONAL RESULTS (calculated via Gated SPECT) Stress Image LV EF (%): 45 Stress EDV (mL):194 TID: 0.98 Stress ESV (mL):107 FUNCTIONAL FINDINGS: Segmental wall motion analysis revealed diffuse hypokinesia of the left ventricle, more so of the apex IMPRESSIONS 1. Myocardial perfusion imaging revealing minimal to moderately decreased tracer uptake in the apical segments with some reversibility suggesting myocardial scarring with some ischemia involving the distribution of the distal left circumflex/right coronary artery. 2. Diminished LV ejection fraction of 45%. 3. Segmental wall motion analysis revealing diffuse hypokinesia of the left ventricle, more so of the apex 4. Moderately dilated LV cavity with an end-systolic volume of [address] Reuben Avery MD FAC (Electronically Signed) Final Date: 06 March 2023 20:02 S
--- NOTE | 2023-03-06 07:12 | ECG_ITS ---
[facility] Test Date: 2023-03-06 Pat Name: Trung De Jesus Department: Room: Gender: Male [place]: : 1955 Requested By: Reuben Avery Order Number: [id number] Adeel MD: Reuben Avery M.D. Interpretive Statements NAME OF STUDY: LEXISCAN SESTAMIBI STRESS TEST INDICATION: Chest Pain PROCEDURE: At the baseline, the EKG revealed normal sinus rhythm with a heart rate of [address] Ts.. The baseline heart was 59 bpm with a blood pressue of 116/87 mm of Hg Lexiscan was infused over a period of 20 seconds. A total of 0.4 milligrams of Lexiscan was infused. The stress phase was continued for a total of 5 minutes. Heart rate at the end of the stress phase was 86 bpm with a blood pressure 103/63 mm of Hg. The EKG at the peak infusion revealed frequent PVCs with a peak infusion as well as. During the and early recovery phase Sestamibi was injected 20 seconds after the Lexiscan infusion. Heart rate at the end of the recovery phase was 81 bpm with a blood pressure of 110/69 mm of Hg. CONCLUSION: 1. No significant EKG changes with the LexiScan infusion 2. No LexiScan induced chest pain . Exercise-induced ventricular arrhythmias were noted 3. Normal blood pressure and heart rate response 4. Sestamibi/sestamibi perfusion scan pending; see separate report. Electronically Signed On 03-19-2023 16:34:20 BOWL ATTENDANT by Reuben Avery M.D. [id number]
[2023-03-06] MEDS: regadenoson 0.4 Mg/5 ml Syringe IVP (08:46)
[2023-03-06 09:03] VITALS: BP 114/78; PULSE 72
== END 2023-03-06 06:58 | disposition home or self-care (01) ==
PROVIDERS: PCP Family Medicine; Visit Provider Internal Medicine Cardiovascular Disease
DX: R07.9 Chest pain, unspecified (principal); Z98.61 Coronary angioplasty status; R93.1 Abnormal findings on diagnostic imaging of heart and coronary circulation; I49.8 Other specified cardiac arrhythmias
CPT/HCPCS: 36415; 78452; 93017; 96374; A9500; J2785

== ENCOUNTER 2023-11-13 06:39 | Day surgery (SDC) | payer OTHER, SELFPAY ==
--- NOTE | 2023-11-13 06:06 | W.PM.OPSUD ---
Surgery/Procedure H&P Update DATE OF PROCEDURE: November 13, 2023 DATE H&P PERFORMED: 10/31/23 PLANNED PROCEDURE: Operation Date: 11/13/23 07:40 Proposed Procedures p Colonoscopy [id number], [id number](Not Applicable) - Landen Rowe MD
[2023-11-13 06:51] VITALS: BP 127/68; PULSE 66; RESP 16; TEMP 36.6; O2SAT 97
[2023-11-13 06:56] VITALS: BMI 29.5
--- NOTE | 2023-11-13 07:03 | ANES.PREANE2 ---
Pre-Anesthetic Assessment Height/Weight: Height 1.8 m Weight 96.162 kg Temp Pulse Resp BP Pulse Ox O2 Del Method 97.8 F 66 16 127/68 97 Room Air 11/13/23 06:51 11/13/23 06:51 11/13/23 06:51 11/13/23 06:51 11/13/23 06:51 11/13/23 06:51 Operation Date: 11/13/23 07:40 Proposed Procedures p Colonoscopy 80510, G0121(Not Applicable) - Landen Rowe MD Last intake: Intake Last Liquid Date 11/12/23 Last Liquid Time 23:00 Last Solid Date 11/11/23 Last Solid Time 13:00 CV/HEM Hypertension Aortic valve regurge (mod); EF 45%, NICM Date of Service: 03/06/23 Procedure(s): NM tierra perf SPECT IMPRESSIONS 1. Myocardial perfusion imaging revealing minimal to moderately decreased tracer uptake in the apical segments with some reversibility suggesting myocardial scarring with some ischemia involving the distribution of the distal left circumflex/right coronary artery. 2. Diminished LV ejection fraction of 45%. 3. Segmental wall motion analysis revealing diffuse hypokinesia of the left ventricle, more so of the apex 4. Moderately dilated LV cavity with an end-systolic volume of 107 ml. Date of Service: 03/06/23 Procedure(s): Sestamibi Stress Test CONCLUSION: 1. No significant EKG changes with the LexiScan infusion 2. No LexiScan induced chest pain . Exercise-induced ventricular arrhythmias were noted 3. Normal blood pressure and heart rate response 4. Sestamibi/sestamibi perfusion scan pending; see separate report. Date of Service: 03/05/23 Procedure(s): CV. echo complete CONCLUSIONS Diffuse hypokinesia of the inflow inferoposterior wall segment. LV ejection fraction of 50 to 55%, (visual). Mildly dilated LV cavity. Trace mitral valve regurgitation. Thickened aortic valve. Mild aortic valve regurgitation. There is no pericardial effusion. There are no intracardiac masses. Compared to the study from 04/02/2020, there may not be a significant change EKG from 02/19/2023 revealed Normal sinus rhythm with some nonspecific IVCD. No acute ST-T changes 04/07/21 Carotid duplex ?No significant plaques or unstable lesions in the above- ?mentioned vessels ?No significant stenosis based on the Doppler flow velocities Stress Test 04/07/20 1.? Myocardial perfusion imaging revealing patchy areas of persistent decreased ?tracer uptake in the apical segments, suggestive of myocardial scarring versus ?attenuation artifact. ?2.? Wall motion normalities as mentioned above. ?3.? Moderately dilated LV cavity with an end-systolic volume of 121 mL ?4.? LV ejection fraction, estimated to be 41% ?No significant coronary ischemia, based on the above findings 1. No significant EKG changes with the LexiScan infusion 2. No LexiScan induced chest pain or cardiac arrhythmia 3. Normal blood pressure and heart rate response Echocardiogram done on 04/02/2020 revealed ?Mildly dilated left ventricle with slightly diminished ejection ?fraction 50 to 55%.? Mild hypokinesia of the LV apex.? Mild ?concentric left ventricular hypertrophy. ?Thickened mitral valve. Mild mitral valve regurgitation. ?Thickened aortic valve. [id number] aortic valve ?regurgitation. ?Trace tricuspid and pulmonic valve regurgitation. ?There is no pericardial effusion. ?There are no intracardiac masses. ?Mildly dilated ascending aorta ?Compared to the previous study from 02/05/2018, the wall motion ?abnormality appears to be new Carotid Doppler 08/14/19 Bilateral ICA stenosis less than 50%. ?Minimal left bifurcation atherosclerosis. Echo 02/05/18 1. Normal left ventricular cavity size. Normal left ventricular ?systolic function. Left ventricular ejection fraction is ?estimated at 62%.? No regional wall motion abnormalities. Normal ?diastolic function. ?2. Normal right ventricular size and systolic function. ?3. Right atrial pressure estimated at 3 mmHg. ?4. Mildly increased left atrial size. ?5. Mild to moderate aortic valve regurgitation. ?6. Trace to mild tricuspid valve regurgitation. ?7.? There are no prior studies to compare. Had cath in 2007- no blockages Metabolic Hyperlipidemia Medications/Allergies Home Medications Medication Instructions Recorded Confirmed Last Taken Type aspirin 81 mg tablet,delayed 81 mg PO DAILY 03/08/20 11/13/23 11/12/23 History release (Adult Aspirin Regimen) atorvastatin 40 mg tablet 40 mg PO DAILY 03/08/20 11/13/23 11/12/23 History ibuprofen 200 mg capsule 200 mg PO Q6H PRN Headache 03/08/20 11/13/23 Unknown History omeprazole 20 mg capsule,delayed 20 mg PO DAILY 03/08/20 11/13/23 11/12/23 History release tamsulosin 0.4 mg capsule 0.4 mg PO DAILY 03/08/20 11/13/23 11/12/23 History ondansetron 4 mg disintegrating 4 mg PO Q8H PRN nausea and 11/05/21 11/13/23 11/12/23 Rx tablet vomiting #20 tabs triamcinolone acetonide 0.1 % 1 applic topical DAILY PRN Itching 02/19/23 11/13/23 Unknown History topical cream carvedilol 12.5 mg tablet 12.5 mg PO BID #180 tabs 08/17/23 11/13/23 11/13/23 Rx lisinopril 10 mg tablet 10 mg PO DAILY 11/08/23 11/13/23 11/12/23 History Allergies Allergy/AdvReac Type Severity Reaction Status Date / Time No Known Allergies Allergy Verified 11/08/23 14:06 [facility] Anesthesia Medical History Former smoker History of BPH Hx of hypercholesterolemia History of hypertension Chest pain Aortic regurgitation Surgical History History of total left knee replacement Hx of colonoscopy Family History Brother Diabetes CAD (coronary artery disease) Hypertension Father Cancer Hypertension Mother Dementia Denies family history of Clotting disorder Chronic kidney disease (CKD) Suicide Anesthesia complication Bleeding disorder Lung disease Stroke Social History Smoking and tobacco/nicotine status: never used tobacco/nicotine Alcohol intake: never Data Anesthesia Cardiac Studies: Echocardiogram 03/05/23 Echocardiogram Ultrasound 04/02/20 Sestamibi Stress Test (Cardiology) 03/06/23
--- NOTE | 2023-11-13 07:04 | ANES.PREANE2 ---
Pre-Anesthetic Assessment Height/Weight: Height 1.8 m Weight 96.162 kg Temp Pulse Resp BP Pulse Ox O2 Del Method 97.8 F 66 16 127/68 97 Room Air 11/13/23 06:51 11/13/23 06:51 11/13/23 06:51 11/13/23 06:51 11/13/23 06:51 11/13/23 06:51 Preop Diagnosis: screening Operation Date: 11/13/23 07:40 Proposed Procedures p Colonoscopy 17932, G0121(Not Applicable) - Landen Rowe MD Familial anesthetic complications: none Was Beta Matthew taken within 24 hours: N/A Was Clonidine taken within 24 hours: N/A Last intake: Intake Last Liquid Date 11/12/23 Last Liquid Time 23:00 Last Solid Date 11/11/23 Last Solid Time 13:00 Social No alcohol and No tobacco Exam alert, oriented x 3, clear to auscultation bilaterally and regular rate & rhythm Airway Submandibular: within normal limits Cervical ROM: within normal limits Mallampati: Class II Dentition: other Comments: Comments: missing several. poor dentition. History/ROS No significant history except as noted and No significant complaints Pulmonary None reported CV/HEM Hypertension None reported Hepatic None reported GI Gastroesophageal Reflux Disease Metabolic Diabetes Mellitus [facility] None reported Neuropsych None reported Anesthetic Plan ASA status: 2 Anesthesia: MAC Risk of > 500 ml blood loss (7ml/kg in children): No Other Pertinent Information can walk up a flight of stairs Medications/Allergies Home Medications Medication Instructions Recorded Confirmed Last Taken Type aspirin 81 mg tablet,delayed 81 mg PO DAILY 03/08/20 11/13/23 11/12/23 History release (Adult Aspirin Regimen) atorvastatin 40 mg tablet 40 mg PO DAILY 03/08/20 11/13/23 11/12/23 History ibuprofen 200 mg capsule 200 mg PO Q6H PRN Headache 03/08/20 11/13/23 Unknown History omeprazole 20 mg capsule,delayed 20 mg PO DAILY 03/08/20 11/13/23 11/12/23 History release tamsulosin 0.4 mg capsule 0.4 mg PO DAILY 03/08/20 11/13/23 11/12/23 History ondansetron 4 mg disintegrating 4 mg PO Q8H PRN nausea and 11/05/21 11/13/23 11/12/23 Rx tablet vomiting #20 tabs triamcinolone acetonide 0.1 % 1 applic topical DAILY PRN Itching 02/19/23 11/13/23 Unknown History topical cream carvedilol 12.5 mg tablet 12.5 mg PO BID #180 tabs 08/17/23 11/13/23 11/13/23 Rx lisinopril 10 mg tablet 10 mg PO DAILY 11/08/23 11/13/23 11/12/23 History Allergies Allergy/AdvReac Type Severity Reaction Status Date / Time No Known Allergies Allergy Verified 11/08/23 14:06 [facility] Anesthesia Medical History Former smoker History of BPH Hx of hypercholesterolemia History of hypertension Chest pain Aortic regurgitation Surgical History History of total left knee replacement Hx of colonoscopy Family History Brother Diabetes CAD (coronary artery disease) Hypertension Father Cancer Hypertension Mother Dementia Denies family history of Clotting disorder Chronic kidney disease (CKD) Suicide Anesthesia complication Bleeding disorder Lung disease Stroke Social History Smoking and tobacco/nicotine status: never used tobacco/nicotine Alcohol intake: never Data Anesthesia Cardiac Studies: Echocardiogram 03/05/23 Echocardiogram Ultrasound 04/02/20 Sestamibi Stress Test (Cardiology) 03/06/23
[2023-11-13] MEDS: sodium chloride 0.9% 1,000 ML 30 ML IV (07:05)
[2023-11-13 08:16] VITALS: BP 89/52; PULSE 60; RESP 18; TEMP 36.3; O2SAT 94
[2023-11-13 08:24] VITALS: BP 97/61; PULSE 65; RESP 18; TEMP 36.2; O2SAT 95
--- NOTE | 2023-11-13 08:40 | ANE.PACU2 ---
Inpatient post-anesthesia follow up: Airway intact: Yes Vital signs: Temperature 97.2 F Pulse Rate 65 Respiratory Rate 18 Blood Pressure 97/61 Pulse Oximetry 95 Oxygen Delivery Me thod Room Air Oxygen Flow Rate Fraction of Inspir ed Oxygen Hydration adequate: Yes Nausea and vomiting: No Pain level: 1 Mental status: Baseline
== END 2023-11-13 08:44 | disposition home or self-care (01) ==
PROVIDERS: PCP Family Medicine; Visit Provider Surgery
PROC: 0DJD8ZZ Inspection of Lower Intestinal Tract, Via Natural or Artificial Opening Endoscopic (ICD-10-PCS; CPT 45378; principal; 2023-11-13 07:40)
DX: Z12.11 Encounter for screening for malignant neoplasm of colon (principal); K57.30 Diverticulosis of large intestine without perforation or abscess without bleeding; Z79.82 Long term (current) use of aspirin; Z87.891 Personal history of nicotine dependence; N40.0 Benign prostatic hyperplasia without lower urinary tract symptoms; E78.00 Pure hypercholesterolemia, unspecified; I10 Essential (primary) hypertension; K21.9 Gastro-esophageal reflux disease without esophagitis; E11.9 Type 2 diabetes mellitus without complications
CPT/HCPCS: 45378; J2704; J7030

== ENCOUNTER → 2024-12-11 17:34 | Outpatient (BNVA) | payer OTHER, SELFPAY | PROVIDERS: PCP Family Medicine; Visit Provider Family Medicine | DX: M17.11 Unilateral primary osteoarthritis, right knee (principal) | CPT/HCPCS: 73562 ==

== ENCOUNTER → 2024-12-18 08:31 | Outpatient (BNVA) | payer OTHER, SELFPAY | PROVIDERS: PCP Family Medicine; Visit Provider Family Medicine | DX: I10 Essential (primary) hypertension (principal); Z12.5 Encounter for screening for malignant neoplasm of prostate; N40.0 Benign prostatic hyperplasia without lower urinary tract symptoms | CPT/HCPCS: 80053; 80061; 84153; 84439; 84443; 85025 ==

== ENCOUNTER → 2025-02-15 13:17 | Outpatient (BNVA) | payer OTHER, SELFPAY | PROVIDERS: PCP Family Medicine; Visit Provider Nurse Practitioner | DX: J02.9 Acute pharyngitis, unspecified (principal) | CPT/HCPCS: 87880 ==